=== PATIENT | female | born 1985 | race Native Hawaiian/Other Pacific Islander ===

== ENCOUNTER 2016-10-29 08:07 | Outpatient (CLI) | payer OTHER ==
[~2016-10-29 08:07] MED LIST: AMOX500C85 PO; FLUT0.05 NAS; KLOR-CON 1010 MEQ OR; LEVO0.0529 PO; MAG OXIDE400 MG OR; MILLIPRED5 MG OR; NITR100C56 PO
[2016-10-29 08:28] LABS: PLATELET COUNT 166 K/uL (152-353)
[2016-10-29 08:44] LABS: POTASSIUM 3.7 mmol/L (3.6-5.2); SODIUM 139 mmol/L (136-145)
== END 2016-10-29 19:04 | disposition home or self-care (01) ==
LOC: LABW 08:07
PROVIDERS: Internal Medicine
DX: E03.8 Other specified hypothyroidism (principal)
CPT/HCPCS: 36415; 80053; 81000; 83735; 84439; 84443; 85027

== ENCOUNTER 2017-12-06 15:39 | Outpatient (CLI) | payer OTHER ==
[2017-12-06 16:47] LABS: PLATELET COUNT 177 K/uL (152-353)
[2017-12-06 17:04] LABS: PARTIAL THROMBOPLASTIN TIME 30.9 SECONDS (24.5-33.6)
== END 2017-12-06 22:09 | disposition home or self-care (01) ==
LOC: LABW 15:39
PROVIDERS: Internal Medicine
DX: R23.8 Other skin changes (principal); R79.1 Abnormal coagulation profile
CPT/HCPCS: 36415; 85002; 85027; 85610; 85730

== ENCOUNTER 2018-05-16 00:39 | Observation (INO) | payer OTHER ==
[~2018-05-16] VITALS: Ht 160 cm; Wt 72.6 kg
[2018-05-16 00:54] VITALS: BP 127/76; TEMP 97.6
[2018-05-16] MEDS ORDERED: PAXIL20 MG PO (01:00)
[2018-05-16 01:31] LABS: PLATELET COUNT 175 K/uL (152-353)
[2018-05-16 01:47] LABS: POTASSIUM 3.8 mmol/L (3.6-5.2); SODIUM 141 mmol/L (136-145)
[2018-05-16 05:35] LABS: PARTIAL THROMBOPLASTIN TIME 29.8 SECONDS (24.5-33.6)
[2018-05-16 05:42] VITALS: BP 113/75; TEMP 97.8; Ht 160 cm; Wt 72.6 kg
[2018-05-16 08:00] VITALS: BP 102/57; TEMP 97.8
[2018-05-16 12:00] VITALS: BP 96/56; TEMP 98.2
[2018-05-16 16:00] VITALS: BP 112/76; TEMP 98.3
[2018-05-16 20:00] VITALS: BP 101/60; TEMP 98.7
[2018-05-17] VITALS: BP 92/53; TEMP 98.5
[2018-05-17 04:00] VITALS: BP 95/55; TEMP 98.5
[2018-05-17 06:47] LABS: POTASSIUM 3.8 mmol/L (3.6-5.2)
[2018-05-17 08:00] VITALS: BP 110/70; TEMP 97.9
[2018-05-17] MEDS ORDERED: PANTOPRAZOLE 40MG TA PO (09:12)
== END 2018-05-17 10:40 | disposition home or self-care (01) ==
LOC: ED 00:39 → MED/SURG 04:02
PROVIDERS: Family Medicine; ADMIT Internal Medicine
DX: R07.89 Other chest pain (principal); E03.8 Other specified hypothyroidism; G93.1 Anoxic brain damage, not elsewhere classified
CPT/HCPCS: 80053; 81000; 82550; 83735; 84443; 84484; 85027; 85379; 85610; 85730; 93005; 93306; 96374; 99220; 99284; G0378; J1650; J2405; Q9963

== ENCOUNTER 2020-08-23 12:55 | Outpatient (CLI) | payer OTHER ==
[~2020-08-23 12:55] MED LIST changes: +PANTOPRAZOLE 40MG TA PO; +PAXIL20 MG PO
[2020-08-23 13:15] LABS: PLATELET COUNT 154 K/uL (152-353)
[2020-08-23 13:31] LABS: POTASSIUM 3.9 mmol/L (3.6-5.2)
== END 2020-08-23 19:39 | disposition home or self-care (01) ==
LOC: LAB 12:55
PROVIDERS: ATTEND Internal Medicine
DX: E03.9 Hypothyroidism, unspecified (principal); E87.6 Hypokalemia; J32.9 Chronic sinusitis, unspecified
CPT/HCPCS: 80053; 80061; 81000; 83735; 84439; 84443; 85027

== ENCOUNTER 2021-05-14 08:12 | Outpatient (CLI) | payer OTHER ==
[2021-05-14 09:00] LABS: PLATELET COUNT 160 K/uL (152-353)
== END 2021-05-14 20:40 | disposition home or self-care (01) ==
LOC: LABW 08:12
PROVIDERS: ATTEND Internal Medicine
DX: E03.9 Hypothyroidism, unspecified (principal); E87.6 Hypokalemia; J32.9 Chronic sinusitis, unspecified
CPT/HCPCS: 36415; 80053; 80061; 81000; 83735; 84439; 84443; 85027

== ENCOUNTER 2022-02-10 10:41 | Outpatient (CLI) | payer OTHER ==
[2022-02-10 11:08] LABS: PLATELET COUNT 181 K/uL (152-353)
[2022-02-10 11:23] LABS: POTASSIUM 4.2 mmol/L (3.6-5.2)
== END 2022-02-10 19:57 | disposition home or self-care (01) ==
LOC: LABW 10:41
PROVIDERS: ATTEND Internal Medicine
DX: E03.8 Other specified hypothyroidism (principal); F41.8 Other specified anxiety disorders; E87.6 Hypokalemia
CPT/HCPCS: 36415; 80053; 80061; 81002; 84439; 84443; 85027